=== PATIENT | female | born 1945 | race Caucasian/White ===

== ENCOUNTER → 2017-08-08 | Outpatient (CLI) | payer MEDICARE | END | disposition home or self-care (01) | LOC: RAH 13:36 | PROVIDERS: ATTEND Family Medicine | DX: Z12.31 Encounter for screening mammogram for malignant neoplasm of breast (principal) | CPT/HCPCS: 77067 ==

== ENCOUNTER 2022-01-01 08:30 | Observation (INO) | payer MEDICARE ==
[2022-01-01] VITALS (12 sets, daily range): BP systolic 140–176; BP diastolic 55–96
[~2022-01-01] VITALS: Ht 170.2 cm; Wt 66.2 kg
[2022-01-01] MEDS ORDERED: ATEN1TAB3 PO (09:14)
[2022-01-01] MEDS ORDERED: FERR-72 PO (09:14)
[2022-01-01] MEDS ORDERED: AMLO-257 PO (09:14)
[2022-01-01] MEDS ORDERED: SERT-438 PO ×2 (09:14)
[2022-01-01] MEDS ORDERED: PRAV80TA21 PO (09:14)
[2022-01-01] MEDS ORDERED: HYDR-4153 PO (09:14)
[2022-01-01] MEDS ORDERED: ASPI-1114 PO (09:14)
[2022-01-01] MEDS ORDERED: [UNRECOGNIZED DRUG - OTHER] PO (09:17)
[2022-01-01 09:49] LABS: BASOPHILS % (AUTO) 0.7 % (0.0-5.0); EOSINOPHILS % (AUTO) 0.5 % (0.0-8.0); HEMATOCRIT 27.6 % (36-48); LYMPHOCYTES % (AUTO) 10.9 % (21.0-51.0); MEAN CORPUSCULAR HEMOGLOBIN 26.6 pg (27.0-33.0); MEAN CORPUSCULAR HGB CONC 33.3 g/dL (32.0-36.0); MEAN CORPUSCULAR VOLUME 79.8 fL (79-99); MONOCYTES % (AUTO) 9.1 % (3.0-13.0); NEUTROPHILS % (AUTO) 78.3 % (40.0-77.0); PLATELET COUNT (AUTO) 258 K/uL (130-400); RED BLOOD CELL COUNT(AUTO) 3.46 MIL/uL (4.00-5.50); RED CELL DISTRIBUTION WIDTH 15.5 % (11.0-15.5); WHITE BLOOD COUNT (AUTO) 7.6 K/uL (4.8-10.8)
[2022-01-01 10:00] LABS: CREATININE 1.4 mg/dL (0.5-1.5); POTASSIUM 3.9 mmol/L (3.5-5.1)
[2022-01-01 10:02] LABS: INR 0.94 (0.85-1.15); PROTHROMBIN TIME 10.3 SEC (9.6-11.6)
[2022-01-01 10:03] LABS: PARTIAL THROMBOPLASTIN TIME 26.2 SEC (26.3-35.5)
[2022-01-01] MEDS ORDERED: ACETAMINOPHEN 500 MG TABLET PO PRN (12:30)
[2022-01-01] MEDS ORDERED: PHARMACY COMMUNICATION MISC SCH ×2 (13:00→17:00)
[2022-01-01] MEDS ORDERED: HYDRALAZINE 25MG TABLET PO SCH (14:00)
[2022-01-01] MEDS ORDERED: LIDOCAINE HCL 1% MDV 50ML VIAL ONE (14:51)
[2022-01-01] MEDS ORDERED: ONDANSETRON 4MG INJ IVP PRN (19:00)
[2022-01-01] MEDS ORDERED: ONDANSETRON ODT 4MG TAB SL PRN (19:00)
[2022-01-01] MEDS ORDERED: CHLORTHALIDONE PO SCH (21:00)
[2022-01-01] MEDS: HYDRALAZINE 25MG TABLET PO SCH (21:00)
[2022-01-01] MEDS ORDERED: ATENOLOL PO SCH (21:00)
[2022-01-01] MEDS ORDERED: AMLODIPINE 5 MG TAB PO SCH (21:00)
[2022-01-02] VITALS: BP 136/57
[2022-01-02 04:00] VITALS: BP 143/56
[2022-01-02 04:59] LABS: BASOPHILS % (AUTO) 0.6 % (0.0-5.0); EOSINOPHILS % (AUTO) 0.5 % (0.0-8.0); LYMPHOCYTES % (AUTO) 13.4 % (21.0-51.0); MEAN CORPUSCULAR HEMOGLOBIN 26.6 pg (27.0-33.0); MEAN CORPUSCULAR HGB CONC 33.2 g/dL (32.0-36.0); MEAN CORPUSCULAR VOLUME 80.1 fL (79-99); MONOCYTES % (AUTO) 10.2 % (3.0-13.0); NEUTROPHILS % (AUTO) 74.8 % (40.0-77.0); PLATELET COUNT (AUTO) 253 K/uL (130-400); RED BLOOD CELL COUNT(AUTO) 3.12 MIL/uL (4.00-5.50); RED CELL DISTRIBUTION WIDTH 15.6 % (11.0-15.5); WHITE BLOOD COUNT (AUTO) 8.5 K/uL (4.8-10.8)
[2022-01-02 05:12] LABS: CREATININE 1.5 mg/dL (0.5-1.5); POTASSIUM 3.3 mmol/L (3.5-5.1)
[2022-01-02 08:00] VITALS: BP 140/62
[2022-01-02] MEDS: HYDRALAZINE 25MG TABLET PO SCH ×2 (08:12→12:30)
[2022-01-02] MEDS ORDERED: ATENOLOL PO SCH (09:00)
[2022-01-02] MEDS ORDERED: CHLORTHALIDONE PO SCH (09:00)
[2022-01-02 11:58] VITALS: BP 140/59
== END 2022-01-02 14:06 | disposition home or self-care (01) ==
LOC: EDH 08:30 → 3DH 08:45
PROVIDERS: ADMIT Internal Medicine Nephrology; ATTEND Internal Medicine Nephrology
DX: N17.9 Acute kidney failure, unspecified (principal); I12.9 Hypertensive chronic kidney disease with stage 1 through stage 4 chronic kidney disease, or unspecified chronic kidney disease; N18.9 Chronic kidney disease, unspecified; I77.89 Other specified disorders of arteries and arterioles; I77.6 Arteritis, unspecified; E78.5 Hyperlipidemia, unspecified; R80.9 Proteinuria, unspecified; Z90.710 Acquired absence of both cervix and uterus; Z79.899 Other long term (current) drug therapy; Z98.890 Other specified postprocedural states; Z79.82 Long term (current) use of aspirin; Z98.49 Cataract extraction status, unspecified eye
CPT/HCPCS: 36415 ×2; 50200; 76942; 80048 ×2; 85025 ×2; 85610; 85730; G0378 ×29; G0379; J3490

== ENCOUNTER 2022-03-03 10:04 | Emergency (ER) | payer MEDICARE ==
[~2022-03-03] VITALS: Ht 172.7 cm; Wt 81.6 kg
[~2022-03-03 10:04] MED LIST: AMLO-257 PO; ATEN1TAB3 PO; FERR-72 PO; HYDR-4153 PO; PRAV80TA21 PO; SERT-438 PO
[2022-03-03 10:36] LABS: BASOPHILS % (AUTO) 0.3 % (0.0-5.0); HEMATOCRIT 29.5 % (36-48); LYMPHOCYTES % (AUTO) 1.6 % (21.0-51.0); MEAN CORPUSCULAR HEMOGLOBIN 28.6 pg (27.0-33.0); MEAN CORPUSCULAR HGB CONC 33.2 g/dL (32.0-36.0); MONOCYTES % (AUTO) 6.4 % (3.0-13.0); NEUTROPHILS % (AUTO) 86.6 % (40.0-77.0); PLATELET COUNT (AUTO) 214 K/uL (130-400); RED BLOOD CELL COUNT(AUTO) 3.43 MIL/uL (4.00-5.50); RED CELL DISTRIBUTION WIDTH 18.3 % (11.0-15.5)
[2022-03-03 10:55] LABS: APPEARANCE,URINE CLEAR (CLEAR); BILIRUBIN,URINE NEGATIVE (NEGATIVE); COLOR,URINE YELLOW (YELLOW); GLUCOSE, URINE (UA) 250 mg/dL (NEGATIVE); KETONES,URINE NEGATIVE (NEGATIVE); LEUKOCYTE ESTERASE ,URINE NEGATIVE (NEGATIVE); NITRATE,URINE NEGATIVE (NEGATIVE); OCCULT BLOOD,URINE NEGATIVE (NEGATIVE); PROTEIN,URINE 100 mg/dL (NEGATIVE); UROBILINOGEN,URINE 0.2 mg/dL (0.2-1.0)
[2022-03-03 11:00] LABS: ALBUMIN 1.9 g/dL (3.5-5.0); CREATININE 1.3 mg/dL (0.5-1.5); POTASSIUM 3.3 mmol/L (3.5-5.1)
[2022-03-03 11:13] LABS: B-TYPE NATRIURETIC PEPTIDE 454 pg/mL (0-100)
[2022-03-03 11:15] LABS: WHITE BLOOD COUNT (AUTO) 32.7 K/uL (4.8-10.8)
[2022-03-03 11:17] LABS: BACTERIA,URINE Rare /HPF (None Seen); RBC,URINE 0-1 /HPF (0-1); SQUAMOUS EPITHELIAL CELL,UR Rare /HPF (0-2); WBC,URINE 0-1 /HPF (0-1)
[2022-03-03 11:24] LABS: TOTAL PROTEIN, SERUM 4.6 g/dL (6.0-8.3)
[2022-03-03 11:42] LABS: LYMPHOCYTES % (MANUAL) 1 % (22-44); MAN.DIFF COMMENT-IMPRESSION MANUAL DIFFERENTIAL; MONOCYTES % (MANUAL) 4 % (2-9); PLATELET MORPHOLOGY COMMENT ADEQUATE; SEGMENTED NEUTROPHILS % 95 % (40-70)
[2022-03-03] MEDS ORDERED: PRED20TA3 PO (13:16)
[2022-03-03] MEDS ORDERED: METO-391 PO (13:16)
[2022-03-03] MEDS ORDERED: PRAV80TA21 PO (13:16)
[2022-03-03] MEDS ORDERED: ONDA-104 PO (13:16)
[2022-03-03] MEDS ORDERED: [UNRECOGNIZED DRUG - CODE] IH (13:16)
[2022-03-03] MEDS ORDERED: HYDR-4153 PO (13:16)
[2022-03-03] MEDS ORDERED: SERT-439 PO (13:16)
[2022-03-03] MEDS ORDERED: GUAI600T50 PO (13:16)
[2022-03-03] MEDS ORDERED: IPRA0.2S54 IH (13:16)
[2022-03-03] MEDS ORDERED: CHOL100046 PO (13:17)
[2022-03-03] MEDS ORDERED: DILT120C92 PO (13:18)
[2022-03-03] MEDS ORDERED: LORAZEPAM 2 MG/ML 1 ML VIAL ONE (13:47)
[2022-03-03] MEDS ORDERED: LORAZEPAM 2 MG/ML 1 ML VIAL IVP ONE (14:00)
[2022-03-03] MEDS ORDERED: ZOSYN 3.375GM +NS 50ML IV ONE (14:00)
[2022-03-03 14:09] LABS: INR 0.96 (0.85-1.15); PROTHROMBIN TIME 10.5 SEC (9.6-11.6)
[2022-03-03 14:11] LABS: PARTIAL THROMBOPLASTIN TIME 21.7 SEC (26.3-35.5)
[2022-03-03] MEDS ORDERED: LEVETIRACETAM 500 MG/5 ML SD VIAL IV ONE (14:12)
[2022-03-03] MEDS ORDERED: ZOSYN 3.375GM+NS 50ML 50 ML ONE (14:17)
[2022-03-03] MEDS ORDERED: LEVETIRACETAM 1,000 MG in 0.9%NACL 100ML 100 ML IV SCH (14:30)
[2022-03-03] MEDS ORDERED: LEVETIRACETAM 500 MG/5 ML SD VIAL IV SCH (14:30)
[2022-03-03 14:40] LABS: ABG BASE EXCESS 7.1 mmol/L (-2.0-3.0); ABG HCO3 32.5 mmol/L (21.0-28.0); ABG OXYGEN SATURATION 99.1 % (95.0-99.0); ABG PCO2 51 mmHg (32-45)
[2022-03-03] MEDS ORDERED: LEVETIRACETAM 500 MG in 0.9%NACL 100ML 100 ML IV SCH (15:00)
[2022-03-03 19:50] VITALS: BP 151/79
== END 2022-03-03 20:20 | disposition short-term general hospital (02) ==
LOC: EDH 10:04
DX: J44.0 Chronic obstructive pulmonary disease with (acute) lower respiratory infection (principal); R41.82 Altered mental status, unspecified; R56.9 Unspecified convulsions; J18.9 Pneumonia, unspecified organism; I77.6 Arteritis, unspecified; Z20.822 Contact with and (suspected) exposure to COVID-19; E78.00 Pure hypercholesterolemia, unspecified; I10 Essential (primary) hypertension; I48.91 Unspecified atrial fibrillation; J90 Pleural effusion, not elsewhere classified; Z79.899 Other long term (current) drug therapy
CPT/HCPCS: 99291; 96365; 70450; 71045; 87635; 96375; 82947; 82550; 83874; 84484; 80053; 82803; 83880; 85025; 85610; 85730; 87040 ×2; 87804 ×2; 83605 ×2; 81001; 36415; 96368; 93005; 36600; 82435; 84132; 84295; 85018; C9803; J1953; J2060; J2543